=== PATIENT | female | born 2000 | race Caucasian/White ===

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

== ENCOUNTER 2018-02-11 17:05 | Emergency (ER) | payer SELFPAY ==
[~2018-02-11] VITALS: Ht 167.6 cm; Wt 81.8 kg
[~2018-02-11 17:05] MED LIST: CEPHALEXIN500 M1 PO; NEXPLANON68 MG ID
[2018-02-11 18:39] LABS: COLLECTION METHOD CATHETER
[2018-02-11 18:51] LABS: PH 8 (5-8); SQUAMOUS EPITHELIAL 0-2 /hpf; URINE APPEARANCE Hazy; URINE BACTERIA None Seen /hpf; URINE BILIRUBIN Negative (NEGATIVE); URINE BLOOD 1+ (NEGATIVE); URINE COLOR Yellow; URINE GLUCOSE Negative (NEGATIVE); URINE KETONE Negative (NEGATIVE); URINE LEUKOCYTE ESTERASE 1+ (NEGATIVE); URINE NITRATE Negative (NEGATIVE); URINE PROTEIN(semi-quant) Negative (NEGATIVE)
[2018-02-11] MEDS ORDERED: BACTRIM DS 8001 TAB PO (20:02)
[2018-02-11 20:32] VITALS: BP 134/83; PULSE 100; TEMP 99.9
[2018-02-11] MEDS ORDERED: ZITHROMAX500 M2 PO (20:41)
== END 2018-02-11 20:35 | disposition home or self-care (01) ==
LOC: COL.ER 17:05
PROVIDERS: Physician Assistant
DX: N75.1 Abscess of Bartholin's gland (principal)

== ENCOUNTER 2018-02-12 16:26 | Emergency (ER) | payer SELFPAY ==
[~2018-02-12] VITALS: Ht 170.2 cm; Wt 81.8 kg
[~2018-02-12 16:26] MED LIST changes: +BACTRIM DS 8001 TAB PO; +ZITHROMAX500 M2 PO
[2018-02-12 16:50] VITALS: TEMP 98.7
[2018-02-12 18:49] VITALS: BP 124/81; PULSE 76
== END 2018-02-12 18:50 | disposition home or self-care (01) ==
LOC: COL.ER 16:26
DX: N75.1 Abscess of Bartholin's gland (principal)